=== PATIENT | male | born 1940 | race Caucasian/White ===

== ENCOUNTER → 2019-09-11 | Emergency (ER) | payer MEDICARE, BC ==
[~2019-09-11] MED LIST: ERYTHROMYCIN OPHTH OINT As Ordered ONE; ERYTHROMYCIN OPHTH OINT ONE; FLUORESCEIN OPHTH 1 MG STRIP As Ordered ONE; FLUORESCEIN OPHTH 1 MG STRIP ONE; OFLOXACIN 0.3 % (OCUFLOX) OPTH SOL 5ML ONE; TETRACAINE 0.5% OPHTH SOLN 4ML As Ordered ONE; TETRACAINE 0.5% OPHTH SOLN 4ML ONE
== END | disposition home or self-care (01) ==
LOC: M ED 21:02
DX: H57.04 Mydriasis (principal); Z95.5 Presence of coronary angioplasty implant and graft; Z79.899 Other long term (current) drug therapy; Z79.82 Long term (current) use of aspirin

== ENCOUNTER → 2019-10-06 | Outpatient (CLI) | payer MEDICARE, BC | LOC: M LABSMTC 13:30 | PROVIDERS: ATTEND Ophthalmology | DX: Z11.59 Encounter for screening for other viral diseases (principal) | CPT/HCPCS: C9803; U0003 ==